=== PATIENT | female | born 1990 | race Caucasian/White ===

== ENCOUNTER 2025-03-11 00:27 | Day surgery (SDC) | payer OTHER, SELFPAY ==
[2025-02-27 10:48] VITALS: BMI 33.8
--- OUTSIDE RECORDS SUMMARY | 2025-03-11 00:31 | XMS_ITS | Clinical Summary ---
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 Skin benign neoplasm 05/14/2015 Acne vulgaris 05/14/2015 Family History Medical History Relation Name Comments Cancer Other Family history of cancer - (Added by TW Conv) Diabetes Other Family history of diabetes mellitus - (Added by TW Conv) Macular degeneration Other Family history of macular degeneration - (Added by TW Conv) Relation Name Status Comments Other Social History Tobacco Use Types Packs/Day Years Used Date Smoking Tobacco: Never Personal Safety Answer Date Recorded Getting School Help Needed Not on file 10/07 Comments Unknown Sex and Gender Information Value Date Recorded Sex Assigned at Not on file Legal Sex 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 Gender Identity Female 03/08/2018 1:59 PM CDT Sexual Orientation Not on file Obstetrics History Plan of Treatment Health Maintenance Due Date Last Done Comments Cervical Cancer Screening 1989 Depression Screening 1989 Hepatitis C Screening 1989 Varicella Vaccines (1 of 2 - 13+ 2-dose series) 2002 Hepatitis B Screening 2007 Regular Well Visit/Exam 18-64 2007 HPV Vaccines (1 - 3-dose SCDM series) 2016 Influenza Vaccine (#1) 2025 4, 03/23/2021, 04/15/2020, Additional history exists DTaP/Tdap/Td Vaccine (2 - Td or Tdap) 02/25/2033 02/25/2023 Covid-19 Vaccine Discontinued 08/11/2023 Pneumococcal vaccine <65 Aged Out No longer eligible based on patient's age to complete this topic Insurance [facility] CHOICE PLUS CIGNA [facility] CHOICE PLUS [facility] CHOICE PLUS [facility] CHOICE PLUS [place] [id number] Care Teams Supervisor Paper Products Relationship Specialty [place] [id number] [place] [id number] PCP - General Urology 10/03/23 [place] [id number] [place] [id number] Family Medicine 10/03/23
--- OUTSIDE RECORDS SUMMARY | 2025-03-11 00:31 | XMS_ITS | Clinical Summary ---
Author Organization [facility] Address [address] [place] [address] Phone Care Team Providers Care Set Up Operator Name Role Phone Milana Urena MD Primary Care Provider Allergies Active Allergy Reactions Criticality Noted Date Comments Clindamycin Hives High 04/13/2023 Per pt Shellfish Containing Products Anaphylaxis High 10/04 Medications VIT-IRON FUM-FOLIC AC ORAL Take by mouth. Active methylcellulose (CITRUCEL ORAL) Take by mouth. Active sennosides-docu sate sodium (SENNA-S) 8.6-50 mg tablet Take 1 Tablet by mouth 2 times daily as needed for Constipation . 30 Tablet 1 04/14/2023 Active docusate sodium (COLACE) 50 mg capsule Take 50 mg by mouth 2 times daily. Active sulfamethoxazol e-trimethoprim (BACTRIM) 400-80 mg tablet Take 1 Tablet by mouth daily. 30 Tablet 06/09/2023 Active escitalopram oxalate (LEXAPRO) 5 mg tablet Take 1 Tablet (5 mg) by mouth daily. 90 Tablet 3 07/28/2023 Active buPROPion HCL (WELLBUTRIN XL) 150 mg Extended Release 24 hour tablet TAKE 1 TABLET(150 MG) BY MOUTH DAILY IN THE MORNING 90 Tablet 09/22/2023 Active desogestreL-eth inyl estradioL (Apri) 0.15-0.03 mg Tablet Take 1 Tablet by mouth daily. 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, girl, Swetha - TG CPD, MAternal Request, CHTN 04/12/2023 Uterine contractions 04/11/2023 Chronic hypertension in 04/11/2023 Encounter for induction of labor 04/11/2023 Vaginal discharge during in third trim josé miguel 04/04/2023 Hydronephrosis, right 10/06/2022 Encounters Date Type Department Care Team Description 02/27/2025 External Device Data [facility] ABSTRACTION Provider, Abstract 02/06/2025 External Device Data [facility] ABSTRACTION Provider, Abstract 02/05/2025 External Device Data [facility] ABSTRACTION Provider, Abstract 01/08/2025 External Device Data [facility] ABSTRACTION Provider, Abstract 12/25/2024 External Device Data [facility] ABSTRACTION Provider, Abstract from Last 3 Months Immunizations Immunization Administration Dates Next Due (ADACEL/BOOSTRIX)(10 YR UP) TDAP VACCINE, 0.5ML, IM 02/25/2023 Social History Tobacco Use Types Packs/Day Years Used Date Smoking Tobacco: Never Passive Smoke Exposure: Never Smokeless Tobacco: Never Alcohol Use Standard Drinks/Week Comments Yes 0 (1 standard drink = 0.6 oz pur e alcohol) Socially Comments No Sex and Gender Information Value Date Recorded Sex Assigned at Not on file Legal Sex Female 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 Gender Identity Not on file Sexual Orientation Not on file Last Filed Vital Signs Vital Sign Reading Time Taken Comments Blood Pressure 116/85 07/28/2023 11:04 AM LATIN AMERICAN STUDIES PROFESSOR Pulse 98 04/15/2023 8:00 AM CDT Temperature 36.7 C (98.1 F) 04/15/2023 8:00 AM CDT Respiratory Rate 18 04/15/2023 8:00 AM CDT Oxygen Saturation 96% 04/13/2023 12:18 PM CDT Inhaled Oxygen Concentration - - Weight 105.7 kg (233 lb) 07/28/2023 11:04 AM LATIN AMERICAN STUDIES PROFESSOR Height 175.3 cm (5' 9) 07/28/2023 11:04 AM LATIN AMERICAN STUDIES PROFESSOR Body Mass Index 34.41 07/28/2023 11:04 AM LATIN AMERICAN STUDIES PROFESSOR Plan of Treatment Health Maintenance Due Date Last Done Comments HPV VACCINES (1 - 3-dose series) 2004 HEPATITIS B VACCINES (1 of 3 - 19+ 3-dose series) 2008 INFLUENZA VACCINE (#1) 2025 PAP SMEAR 07/28/2026 07/28/2023 CERVICAL CANCER SCREENING 07/28/2028 HPV/Cotest (21-29) 07/28/2028 07/28/2023 HPV/Cotest (30-65) 07/28/2028 07/28/2023 DTAP/TDAP/TD VACCINES (2 - Td or Tdap) 02/25/2033 COVID-19 Vaccine Completed 04/20/2024, 08/11/2023 Medical Devices Implanted Type Area Internetworking Technician Device Identifier Shelf Expiration Date Model / Serial / Lot Hemostatic Surg Powder [id number] - [id number] Implanted:Qty: 1 on 04/12/2023 by Wilfrido Thomason MD at [facility] Hemostatic N/A: Abdomen [employer]- [employer] 06/23/2024 [id number] / / [id number] Procedures Procedure Name Priority Date/Time Associated Diagnosis Comments CERV/VAG CYTO AGE BASED SCREEN PAP Routine 07/28/2023 3:14 PM LATIN AMERICAN STUDIES PROFESSOR Screening for cervical cancer from Last 3 Months or Most Recently Relevant to Health Maintenance Results * CERV/VAG CYTO AGE BASED SCREEN PAP (07/28/2023 3:14 PM LATIN AMERICAN STUDIES PROFESSOR) COMMENT (PAP): [facility] Comment: This order for age-based cervical cancer and STI screening follows ACOG guidelines(PB 168, 140, RMZ694). See individual assays for performing site location. CLINICAL INFORMATION [facility] Comment:None given LAST MENSTRUAL PERIOD [facility] Comment:NONE GIVEN PREV PAP: [facility] Comment:NONE GIVEN PREV BX: [facility] Comment:NONE GIVEN SOURCE [facility] Comment:Endocervix ADEQUACY: [facility] Comment: Satisfactory for evaluation. Endocervical/transformation zone component present. Age and/or menstrual status not provided PAP INTERP [facility] Comment: Cytology Results: Negative for intraepithelial lesion or malignancy. COMMENT (PAP TEST) [facility] [place] Comment: This Pap test has been evaluated with computer assisted technology. STUDENT COUNSELOR: [facility] Comment: MMW, CT(ASCP) CT screening location: [place] [address] [place] [address] EXPLANATORY NOTE [facility] [place] Comment: EXPLANATORY NOTE: The Pap is a screening test for cervical cancer. It is not a diagnostic test and is subject to false negative and false positive results. It is most reliable when a satisfactory sample, regularly obtained, is submitted with relevant clinical findings and history, and when the Pap result is evaluated along with historic and current clinical information. HPV E6/E7 Not Detected Not Detected Patient [employer] [facility] [place] Comment: Methodology: Ropeman-Mediated Amplification This assay detects E6/E7 viral messenger RNA (mRNA) from 14 high-risk HPV types (16,18,31,33,35,39,45,51,52,56,58,59,66,68). Cervical sources are required for HPV testing. If a vaginal source from a patient who has had a total hysterectomy with removal of cervix was submitted, please contact the testing laboratory for alternative testing options. For additional information, please refer to http://education.[employer]/faq/JLR746b7 (This link if provided for information/ educational purposes only.) Test Performed at: [facility] [address] [place] [address] Davonte Mathias MD SL Genital SWAB OF ENDOCERVIX / Unknown 07/28/2023 3:14 PM LATIN AMERICAN STUDIES PROFESSOR 07/29/2023 1:38 AM LATIN AMERICAN STUDIES PROFESSOR Miranda Cates MD PATHOLOGY/CYTOLOGY ORDERABLES Fi nal Result [facility] [phone] [facility] [id number] [place] [phone] from Last 3 Months or Most Recently Relevant to Health Maintenance Insurance [employer] [id number] Advance Directives For more information, please contact: [phone] * Full Code (Latest Code Status on File) Date Activated Date Inactivated Comments 04/12/2023 5:16 PM 04/15/2023 6:55 PM * Full Code Date Activated Date Inactivated Comments 04/11/2023 10:25 PM 04/12/2023 5:16 PM * Full Code Date Activated Date Inactivated Comments 04/11/2023 6:27 PM 04/11/2023 10:25 PM * Full Code Date Activated Date Inactivated Comments 04/03/2023 8:17 PM 04/04/2023 12:35 AM * Full Code Date Activated Date Inactivated Comments 10/04/2022 9:59 PM 10/08/2022 4:54 AM Care Teams Set Up Operator Relationship Specialty Start Date End Date Milana Urena MD PCP - General Family Practice 10/04/22
[2025-03-11 13:07] VITALS: BP 132/88; PULSE 100; RESP 18; TEMP 36.7; O2SAT 96
--- NOTE | 2025-03-11 13:10 | WPDANESEPPF ---
Anes - Initial Pre Proc Eval Procedure: Operation Date: 03/11/25 14:30 Proposed Procedures p Diagnostic Colonoscopy - Paul James MD Date/Time: 03/11/25 13:10 Surgeon: Paul James MD Pre Op Diagnosis: Hemorrhage of anus and rectum Patient Data Age: 35 Gender: F Height: 1.75 m Weight: 103.9 kg Allergies Allergy/AdvReac Type Severity Reaction Status Date / Time budesonide (Symbicort) Allergy Unknown thrush Verified 03/11/25 13:05 formoterol (Symbicort) Allergy Unknown thrush Verified 03/11/25 13:05 latex Allergy Unknown Rash Verified 03/11/25 13:05 minocycline Allergy Unknown Skin Verified 03/11/25 13:05 Reaction clindamycin AdvReac Intermediate Rash Verified 03/11/25 13:05 shellfish Allergy Mild Swelling Uncoded 03/11/25 13:05 of Lip/Tongue/Throat Home Medications ?Medication ?Instructions ?Recorded ?Confirmed ?Type albuterol sulfate 90 mcg/actuation 2 puff inhalation Q4H PRN 01/05/24 03/11/25 Rx aerosol inhaler (ProAir HFA) shortness of breath or wheezing #8.5 grams cranberry 500 mg capsule 500 mg PO BID 04/25/24 03/11/25 History d-mannose 500 mg capsule 500 mg PO DAILY 04/25/24 03/11/25 History desogestrel 0.15 mg-ethinyl 1 tablet PO DAILY #84 tabs 08/21/24 03/11/25 Rx estradiol 0.03 mg tablet (Isibloom) escitalopram oxalate 5 mg tablet 5 mg PO DAILY #90 tabs 10/11/24 03/11/25 Rx Patient hx anesthesia problems: none Family hx anesthesia problems: none Results Review: All pre-operative results and documents have been reviewed as part of the pre-operative evaluation. 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 12.11.17 mateus 1/ecc negative ( colpo) 06-07-18 Normal pap 5-16-19 Normal pap/ HPV neg pap q 6 months Surgical History Surgical History (Updated 03/11/25 @ 13:10 by Eugene Storm MD) History of section Family History Family History Grandparent Diabetes mellitus Family history of lymphoma Mother Cerebrovascular accident Family history of irritable bowel syndrome Father Family history of bronchitis Family history of chronic obstructive pulmonary disease Other Family history of glaucoma Family history of malignant neoplasm of breast Social History Social History Smoking status: Never smoker Alcohol intake: former Alcohol use details: rarely Substance use: current Substance use type: marijuana Other substance usage details: edibles occasionally Last use: edible a couple weeks ago Do You Feel Safe in your Home?: Yes Lack of Transportation: No Lack of Food: Never True Current Housing: I Have Housing Concerned About Future Housing: No Difficulty Paying Gas/Electric Bills: No Difficulty Paying for Meds: No Currently Unemployed: No Education: Master's Degree or Higher Difficulty w/ Childcare or Family Care: No Anes - Eval Final PreProcedure Day of Procedure 03/11/25 13:10 Patient weight: obese Heart: regular rate and rhythm Lungs: clear to auscultation Airway: Mallampati scale class II Neurological: alert and oriented Last oral intake: >/= 8 hours ASA classification: III Emergent: no Anesthetic plan: proceed Anesthesia type and monitoring: general GIVS and standard monitoring Results Review: All pre-operative results and documents have been reviewed as part of the pre-operative evaluation. Informed Consent: The patient's anesthetic plan and its attendant risks and benefits were discussed with the patient/family/POA. Questions were solicited and answers provided to the satisfaction of the patient/family/POA.
[2025-03-11] MEDS: LACTATED RINGERS 1,000 ML 150 ML IV CONT (13:17)
[2025-03-11 13:56] LABS: Beta HCG Quantitative < 2.39 mIU/ML
--- NOTE | 2025-03-11 14:15 | PM.HPGS ---
History of Present Illness History of Present Illness Consent: Risks, benefits, and alternatives have been discussed and questions answered. Patient agrees to proceed with procedure. 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 12.11.17 mateus 1/ecc negative ( colpo) 06-07-18 Normal pap 12-07-18 Normal pap/ HPV neg pap q 6 months Surgical History Surgical History (Updated 03/11/25 @ 13:10 by Eugene Storm MD) History of section Family History Family History Grandparent Diabetes mellitus Family history of lymphoma Mother Cerebrovascular accident Family history of irritable bowel syndrome Father Family history of bronchitis Family history of chronic obstructive pulmonary disease Other Family history of glaucoma Family history of malignant neoplasm of breast Social History Social History Smoking status: Never smoker Alcohol intake: former Alcohol use details: rarely Substance use: current Substance use type: marijuana Other substance usage details: edibles occasionally Last use: edible a couple weeks ago Do You Feel Safe in your Home?: Yes Lack of Transportation: No Lack of Food: Never True Current Housing: I Have Housing Concerned About Future Housing: No Difficulty Paying Gas/Electric Bills: No Difficulty Paying for Meds: No Currently Unemployed: No Education: Master's Degree or Higher Difficulty w/ Childcare or Family Care: No Meds Home Medications and Allergies Home Medications ?Medication ?Instructions ?Recorded ?Confirmed ?Type albuterol sulfate 90 mcg/actuation 2 puff inhalation Q4H PRN 01/05/24 03/11/25 Rx aerosol inhaler (ProAir HFA) shortness of breath or wheezing #8.5 grams cranberry 500 mg capsule 500 mg PO BID 04/25/24 03/11/25 History d-mannose 500 mg capsule 500 mg PO DAILY 04/25/24 03/11/25 History desogestrel 0.15 mg-ethinyl 1 tablet PO DAILY #84 tabs 08/21/24 03/11/25 Rx estradiol 0.03 mg tablet (Isibloom) escitalopram oxalate 5 mg tablet 5 mg PO DAILY #90 tabs 10/11/24 03/11/25 Rx Allergies Allergy/AdvReac Type Severity Reaction Status Date / Time budesonide (Symbicort) Allergy Unknown thrush Verified 03/11/25 13:05 formoterol (Symbicort) Allergy Unknown thrush Verified 03/11/25 13:05 latex Allergy Unknown Rash Verified 03/11/25 13:05 minocycline Allergy Unknown Skin Verified 03/11/25 13:05 Reaction clindamycin AdvReac Intermediate Rash Verified 03/11/25 13:05 shellfish Allergy Mild Swelling Uncoded 03/11/25 13:05 of Lip/Tongue/Throat Vital Signs Vital Signs - 24 hr 03/11/25 13:07 Temperature 98.1 F Pulse Rate 100 Respiratory Rate 18 Blood Pressure 132/88 Pulse Oximetry 96 Oxygen Delivery Room Air Exam Const: General: comfortable and no acute distress HENMT: Face/Nose/Sinus: Normal nares present Eyes: General: appearance normal, both eyes and all related structures Neck: Neck: no JVD Resp: Auscultation: clear to auscultation bilaterally Cardio: Rate: regular rate Rhythm: regular rhythm GI: Inspection: non-distended GI Palp: Yes Soft to palpation Skin: General skin exam: normal color Neuro: Speech: normal speech Extrem: General: normal to inspection Psych: Mental Status: mental status grossly normal Assessment and Plan Assessment and plan (1) Rectal bleeding: Code(s): K62.5 - Hemorrhage of anus and rectum Status: Acute Assessment and Plan: colonoscopy
[2025-03-11 14:43] VITALS: BP 112/70; PULSE 81; RESP 17; O2SAT 100
[2025-03-11 14:53] VITALS: BP 124/73; PULSE 72; RESP 22; O2SAT 100
[2025-03-11 15:03] VITALS: BP 129/80; PULSE 78; RESP 19; O2SAT 100
== END 2025-03-11 15:18 | disposition home or self-care (01) ==
PROVIDERS: Anesthesiology; PCP Family Medicine; Referring Provider Family Medicine; Visit Provider Internal Medicine Gastroenterology
PROC: 0DJD8ZZ Inspection of Lower Intestinal Tract, Via Natural or Artificial Opening Endoscopic (ICD-10-PCS; CPT 45378; principal; 2025-03-11 14:30)
DX: K64.8 Other hemorrhoids (principal); F12.90 Cannabis use, unspecified, uncomplicated; E66.9 Obesity, unspecified; Z68.33 Body mass index [BMI] 33.0-33.9, adult; Z79.51 Long term (current) use of inhaled steroids; Z98.890 Other specified postprocedural states; Z84.81 Family history of carrier of genetic disease; Z80.3 Family history of malignant neoplasm of breast; Z80.7 Family history of other malignant neoplasms of lymphoid, hematopoietic and related tissues
CPT/HCPCS: 45378; 36415; 84702; J2704; J7120